=== PATIENT | female | born 1945 | race Caucasian/White ===

== ENCOUNTER 2019-01-19 22:18 | Emergency (ER) | payer MEDICAID ==
[2019-01-19 22:51] VITALS: BP 170/74
[2019-01-19] MEDS ORDERED: Acetaminophen/HYDROcodone 325-5 MG Tab PO ONE (22:55)
--- NOTE | 2019-01-19 22:58 | EDM.PDOC ---
ED HPI GENERAL MEDICAL PROBLEM - General Chief Complaint: Lower Extremity Injury/Pain Stated Complaint: RIGHT LEG PAIN Time Seen by Provider: 01/19/19 22:55 Source of Information: Reports: Patient History Limitations: Reports: No Limitations - History of Present Illness INITIAL COMMENTS - FREE TEXT/NARRATIVE: pt arrived with pain in her lower leg and behind her knee. She states the pain is getting worse and worse. She was seen at the clinic today and she was placed on predisone and flexeril. Onset: Gradual, Other ( last 2 days. ) Duration: Hour(s): Location: Reports: Lower Extremity, Right Associated Symptoms: Reports: No Other Symptoms right LE Pain Score (Numeric/FACES): 8 - Related Data Allergies Allergy/AdvReac Type Severity Reaction Status Date / Time No Known Allergies Allergy Verified 01/19/19 23:04 Home Meds: Home Meds Aspirin [Adult Low Dose Aspirin EC] 81 mg PO DAILY PRN 01/01/16 [History] Acetaminophen 500 mg PO ASDIRECTED PRN 03/24/16 [History] Ibuprofen [Advil] 200 mg PO Q6H PRN 03/24/16 [History] Cyanocobalamin (Vitamin B12) [Vitamin B12] 1 tab PO DAILY 01/19/19 [History] Cyclobenzaprine HCl 1 tab PO TID PRN 01/19/19 [History] predniSONE [Prednisone] 10 mg PO DAILY 01/19/19 [History] Past Medical History HEENT History: Reports: Impaired Vision Other HEENT History: wears glasses Gastrointestinal History: Reports: Cholelithiasis [employer] History: Reports: Musculoskeletal History: Reports: Neck Pain, Chronic Neurological History: Reports: Headaches, Chronic Oncologic (Cancer) History: Reports: None Dermatologic History: Reports: Cellulitis - Infectious Disease History Infectious Disease History: Reports: Chicken Pox, Measles, Mumps - Past Surgical History Oncologic Surgical History: Reports: Lumpectomy, Other (See Below) Social & Family History - Family History Family Medical History: Noncontributory Review of Systems - Review of Systems Review Of Systems: See Below Constitutional: Reports: No Symptoms Eyes: Reports: No Symptoms Ears: Reports: No Symptoms Nose: Reports: No Symptoms Mouth/Throat: Reports: No Symptoms Respiratory: Reports: No Symptoms Cardiovascular: Reports: No Symptoms GI/Abdominal: Reports: No Symptoms Genitourinary: Reports: No Symptoms Musculoskeletal: Reports: Other (pain behind the rt knee. ) Skin: Reports: No Symptoms ED EXAM, GENERAL - Physical Exam Exam: See Below Free Text/Narrative:: pt arrived with pain in the calf of the rt legextending down into the muscles. Pt does feel like there is some tight muscle in the post calf just below the knee. This area is very tender. There is no redness or feeling of warmth. Pt has a nice warm foot and good pulse. This came on without injury. It has been so painful that she can bearly walk. She does have a history of back problems. She has not been having alot of pain in her back recently Exam Limited By: No Limitations General Appearance: Alert, Moderate Distress Ears: Normal TMs Nose: Normal Inspection Throat/Mouth: Normal Inspection Head: Atraumatic Neck: Normal Inspection Respiratory/Chest: No Respiratory Distress Cardiovascular: Regular Rate, Rhythm Extremities: Other (pt is tender in the post calf just below the knee. There is no redness. The muscles do fee tight. she has a neg straight leg raising sign. She had a lumbar spine series which show marked narrowing at l5-s1. She had a Us on the leg which did not reveal any clots. She was ambulated and she did do much better with a walker. ) Neurological: Alert, Oriented, Normal Cognition Course - Vital Signs Last Recorded V/S: Last Vital Signs Temp 36.7 C 01/19/19 23:12 Pulse 73 01/19/19 23:12 Resp 16 01/19/19 23:12 BP 170/74 H 01/19/19 23:12 Pulse Ox 94 L 01/19/19 23:12 - Orders/Labs/Meds Labs: Laboratory Tests 01/19/19 01/20/19 Range/Units 23:00 01:00 WBC 8.1 (4.5-11.0) K/uL RBC 4.45 (3.30-5.50) M/uL Hgb 12.6 (12.0-15.0) g/dL Hct 39.3 (36.0-48.0) % MCV 88 (80-98) fL MCH 28 (27-31) pg MCHC 32 (32-36) % Plt Count 272 (150-400) K/uL Neut % (Auto) 91 H (36-66) % Lymph % (Auto) 7 L (24-44) % Patrick % (Auto) 2 (2-6) % Eos % (Auto) 0 L (2-4) % Baso % (Auto) 0 (0-1) % C-Reactive Protein 0.43 H (0.0-0.3) mg/dL Meds: Medications Discontinued Medications Generic Name Dose Route Start Last Admin Trade Name Freq PRN Reason Stop Dose Admin Hydrocodone Bitart/Acetaminophen 1 tab 01/19/19 22:55 01/19/19 23:03 Ambrose 325-5 Mg PO 01/19/19 22:56 1 tab ONETIME ONE Administration - Re-Assessments/Exams Free Text/Narrative Re-Assessment/Exam: 01/20/19 01:55 lumbar spine shows narrowing at l5-s1. Her us of the rt leg was neg. Departure - Departure Time of Disposition: 01:43 Disposition: Home, Self-Care 01 Condition: Fair Clinical Impression: Pain in posterior right lower extremity - Discharge Information Referrals: Carlin Boswell FUELER [Primary Care Provider] - Forms: ED Department Discharge Care Plan Goals: moist warm heat to area, walk with a walker. continue predisone and muscle relaxant, add norco 5/325 q6h prn for pain, if not better pt should be seen by ortho for evaluation.
--- NOTE | 2019-01-20 00:02 | CRLUS ---
INDICATION: pain in rt lower leg definitely getting worse TECHNIQUE: Ultrasound venous duplex right lower extremity. COMPARISON: None. FINDINGS: The right common femoral, superficial femoral, deep femoral, popliteal, posterior tibial, and greater saphenous veins are fully compressible with normal waveforms. . IMPRESSION: Normal ultrasound of the right lower extremity veins. Dictated by: Vivek Martinez MD @ 01/19/2019 23:59:39 (Electronically Signed)
--- NOTE | 2019-01-20 01:24 | CRLCR ---
INDICATION: Right leg pain TECHNIQUE: Lumbar spine 5 view COMPARISON: None FINDINGS: Bones: No evidence of fracture. No spondylolysis seen. Joints: 5 millimeter anterolisthesis at L4-5. Disc space narrowing at the L4-5 and L5-S1 levels as well as facet hypertrophy. Soft tissues: Atherosclerosis. 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 Dictated by Kodak Banda MD @ Jan 20 2019 1:19AM Signed by Dr. Kodak Banda @ Jan 20 2019 1:22AM
== END 2019-01-20 02:08 | disposition home or self-care (01) ==
LOC: JP.ED 22:18
DX: M79.661 Pain in right lower leg (principal); Z79.899 Other long term (current) drug therapy; Z88.2 Allergy status to sulfonamides
CPT/HCPCS: 36415; 72110; 85025; 86140; 93971; 99284; A9270

== ENCOUNTER 2020-07-04 08:26 | Day surgery (SDC) | payer MEDICAID ==
[~2020-07-04 08:26] MED LIST: Bacitracin Oint 1 GM U/D Packet ONE; Lidocaine 1% with EPINEPHrine 1:100,000 50 ML MDV ONE
[2020-07-04] MEDS ORDERED: Midazolam 1 MG/ML 2 ML SDV ONE (09:16)
[2020-07-04] MEDS ORDERED: fentaNYL 100 MCG/2 ML SDV ONE (09:16)
[2020-07-04] MEDS ORDERED: Propofol 200 MG/20 ML SDV ONE (09:17)
[2020-07-04] MEDS ORDERED: Sodium Chloride 0.9% 1,000 ML IV SCH (09:30)
[2020-07-04] MEDS ORDERED: Bacitracin Oint 1 GM U/D Packet ONE (10:13)
[2020-07-04 12:35] VITALS: BP 165/83; PULSE 65
--- NOTE | 2020-07-05 08:21 | OR ---
DATE OF PROCEDURE: 07/04/2020 SURGEON: Estuardo Prado MD PROCEDURE: Bilateral temporal artery biopsies. COMPLICATIONS: None. VACUUM REPAIRER: None. ANESTHETIC: MAC/local. RISKS: Risks, benefits, alternatives, and limitations including, but not limited to, infection, bleeding, chronic wounds, chronic pain were explained to the patient who wished to proceed. PROCEDURE IN DETAIL: The patient was placed in supine position. The right side was addressed first. This was injected with lidocaine and then a transverse incision was made over the Doppler arterial area. This was then carried down to a pulsating artery. This was then suture ligated using 3-0 Vicryl sutures and sent to pathology, and the skin was closed with 3-0 Vicryl and 4-0 Vicryl in interrupted running fashion. The left side was then performed in the same manner, same fashion, same technique, and in the same sequence using the same equipment. Dermabond was applied to both. The patient tolerated the procedure well. Estuardo Prado MD /[id number]
== END 2020-07-04 12:55 | disposition home or self-care (01) ==
LOC: JP.SDS 08:26
PROVIDERS: ATTEND Surgery
DX: R51.9 Headache, unspecified (principal); I27.20 Pulmonary hypertension, unspecified; E66.9 Obesity, unspecified; F17.210 Nicotine dependence, cigarettes, uncomplicated; Z68.44 Body mass index [BMI] 60.0-69.9, adult
CPT/HCPCS: 88305; 88313; J2250; J2704; J3010; J7030

== ENCOUNTER 2021-07-23 12:43 | Emergency (ER) | payer MEDICAID ==
--- NOTE | 2021-07-23 13:16 | EDM.PDOC ---
ED HPI GENERAL MEDICAL PROBLEM - General Chief Complaint: Lower Extremity Injury/Pain Stated Complaint: PAIN ON L SIDE Time Seen by Provider: 07/23/21 13:05 Source of Information: Reports: Patient History Limitations: Reports: No Limitations - History of Present Illness INITIAL COMMENTS - FREE TEXT/NARRATIVE: 76-year-old female with chronic left-sided pain, claims she has had this problem for years but it is worse the last several weeks, arrives with intense pain in the left chest wall and left upper abdomen. She has had a work-up including CT scan about a year ago, she had an MRI of her low back just a few weeks ago and had a chronic pain consultation on Wednesday in [place] but canceled it because she thought it was regarding her back and this is side pain. No fevers or chills, no new injury, it hurts to breathe but other than the intensity of the pain it is not much different than it has been in the past. She has no bruising or rash over the painful area, no loss of weight or appetite. Onset: Gradual Duration: Chronic Location: Reports: Chest (Left lower lateral chest wall), Abdomen (I left abdomen) Quality: Reports: Sharp, Stabbing Worsens with: Reports: Breathing, Other (Very sore to palpation), Movement Associated Symptoms: Reports: No Other Symptoms Left Chest Pain Score (Numeric/FACES): 10 - Related Data Allergies Allergy/AdvReac Type Severity Reaction Status Date / Time No Known Allergies Allergy Verified 07/23/21 12:59 Home Meds: Home Meds Acetaminophen 500 mg PO ASDIRECTED PRN 03/24/16 [History] Aspirin [Halfprin] 81 mg PO DAILY 07/02/20 [History] Naproxen Sodium [Aleve] 220 mg PO DAILY 04/29/21 [History] Gabapentin [Neurontin] 100 mg PO BID #30 capsule 07/23/21 [Rx] Past Medical History HEENT History: Reports: Impaired Vision Other HEENT History: wears glasses Cardiovascular History: Reports: None Respiratory History: Reports: None Gastrointestinal History: Reports: Cholelithiasis Genitourinary History: Reports: None RADIOLOGY PHYSICIAN History: Reports: Musculoskeletal History: Reports: Neck Pain, Chronic, Other (See Below) Other Musculoskeletal History: right knee pain. Jiménez's cyst R knee Neurological History: Reports: Headaches, Chronic Psychiatric History: Reports: None Endocrine/Metabolic History: Reports: None Hematologic History: Reports: None Immunologic History: Reports: None Oncologic (Cancer) History: Reports: None Dermatologic History: Reports: Cellulitis - Infectious Disease History Infectious Disease History: Reports: Chicken Pox, Measles, Mumps - Past Surgical History Head Surgeries/Procedures: Reports: None HEENT Surgical History: Reports: None GI Surgical History: Reports: Appendectomy, Cholecystectomy, Colonoscopy Female Surgical History: Reports: Tubal Ligation Endocrine Surgical History: Reports: Thyroid Biopsy, Other (See Below) Other Endocrine Surgeries/Procedures: parotoid gland removed from right side Neurological Surgical History: Reports: None Musculoskeletal Surgical History: Reports: None Oncologic Surgical History: Reports: Lumpectomy, Other (See Below) Other Oncologic Surgeries/Procedures: states had benign lump removed from in front of right ear Dermatological Surgical History: Reports: None Social & Family History - Family History Family Medical History: No Pertinent Family History - Tobacco Use Tobacco Use Status *Q: Heavy Tobacco User Years of Tobacco use: 55 Packs/Tins Daily: 0.5 - Caffeine Use Caffeine Use: Reports: Coffee, Soda - Recreational Drug Use Recreational Drug Use: No ED ROS GENERAL - Review of Systems Review Of Systems: See Below Constitutional: Denies: Fever, Chills, Malaise HEENT: Reports: No Symptoms Respiratory: Reports: Pleuritic Chest Pain Cardiovascular: Reports: Chest Pain, Other (She recently underwent a stress test that was fine). Denies: Palpitations GI/Abdominal: Reports: Abdominal Pain : Reports: No Symptoms Musculoskeletal: Reports: Back Pain Skin: Reports: No Symptoms Neurological: Denies: Headache, Paresthesia ED EXAM, GENERAL - Physical Exam Exam: See Below Exam Limited By: No Limitations General Appearance: Alert, No Apparent Distress Head: Atraumatic Neck: Supple, Non-Tender Respiratory/Chest: Lungs Clear, Other (Significant palpation tenderness which actually causes her to become tearful along the left lower chest wall. There is no visual abnormality, no crepitus, no rash) Cardiovascular: Regular Rate, Rhythm. No: Extra Beats GI/Abdominal: Soft, Tender (Some reaction to palpation in the left upper quadrant but not as much as the chest wall tenderness) Extremities: No: Pedal Edema Neurological: Alert, Oriented, No Motor/Sensory Deficits Psychiatric: Anxious Skin Exam: Warm, Dry Course - Vital Signs Last Recorded V/S: Last Vital Signs Temp 97.3 F 07/23/21 13:02 Pulse 71 07/23/21 14:46 Resp 16 07/23/21 14:46 BP 162/73 H 07/23/21 14:46 Pulse Ox 99 07/23/21 14:46 - Orders/Labs/Meds Labs: Laboratory Tests 07/23/21 07/23/21 07/23/21 Range/Units 13:25 13:25 13:25 WBC 9.9 (4.5-11.0) K/uL RBC 4.50 (3.30-5.50) M/uL Hgb 12.6 (12.0-15.0) g/dL Hct 39.7 (36.0-48.0) % MCV 88 (80-98) fL MCH 28 (27-31) pg MCHC 32 (32-36) % Plt Count 298 (150-400) K/uL Neut % (Auto) 71.6 H (36-66) % Lymph % (Auto) 18.3 L (24-44) % Jefferson % (Auto) 7.9 H (2-6) % Eos % (Auto) 1.8 L (2-4) % Baso % (Auto) 0.4 (0-1) % ESR 33 H (0-25) mm/hr Sodium 140 (140-148) mmol/L Potassium 4.3 (3.6-5.2) mmol/L Chloride 106 (100-108) mmol/L Carbon Dioxide 26 (21-32) mmol/L Anion Gap 7.9 (5.0-14.0) mmol/L BUN 11 (7-18) mg/dL Creatinine 0.9 (0.6-1.0) mg/dL Est Cr Clr Drug Dosing 43.37 mL/min Estimated GFR (MDRD) > 60 (>60) Glucose 94 (74-106) mg/dL Calcium 8.8 (8.5-10.1) mg/dL Total Bilirubin 0.3 (0.2-1.0) mg/dL AST 15 (15-37) U/L ALT 16 (12-78) U/L Alkaline Phosphatase 93 (46-116) U/L C-Reactive Protein (0.0-0.3) mg/dL Total Protein 6.8 (6.4-8.2) g/dL Albumin 3.4 (3.4-5.0) g/dL Globulin 3.4 (2.3-3.5) g/dL Albumin/Globulin Ratio 1.0 L (1.2-2.2) 07/23/21 Range/Units 13:25 WBC (4.5-11.0) K/uL RBC (3.30-5.50) M/uL Hgb (12.0-15.0) g/dL Hct (36.0-48.0) % MCV (80-98) fL MCH (27-31) pg MCHC (32-36) % Plt Count (150-400) K/uL Neut % (Auto) (36-66) % Lymph % (Auto) (24-44) % Jefferson % (Auto) (2-6) % Eos % (Auto) (2-4) % Baso % (Auto) (0-1) % ESR (0-25) mm/hr Sodium (140-148) mmol/L Potassium (3.6-5.2) mmol/L Chloride (100-108) mmol/L Carbon Dioxide (21-32) mmol/L Anion Gap (5.0-14.0) mmol/L BUN (7-18) mg/dL Creatinine (0.6-1.0) mg/dL Est Cr Clr Drug Dosing mL/min Estimated GFR (MDRD) (>60) Glucose (74-106) mg/dL Calcium (8.5-10.1) mg/dL Total Bilirubin (0.2-1.0) mg/dL AST (15-37) U/L ALT (12-78) U/L Alkaline Phosphatase (46-116) U/L C-Reactive Protein 0.53 H (0.0-0.3) mg/dL Total Protein (6.4-8.2) g/dL Albumin (3.4-5.0) g/dL Globulin (2.3-3.5) g/dL Albumin/Globulin Ratio (1.2-2.2) Meds: Medications Discontinued Medications Generic Name Dose Route Start Last Admin Trade Name Freq PRN Reason Stop Dose Admin Sodium Chloride 75 mls @ 3 mls/sec 07/23/21 14:45 07/23/21 15:06 Normal Saline IV 07/23/21 14:46 3 mls/sec ASDIRECTED YUNIEL Administration Iopamidol 100 ml 07/23/21 14:37 07/23/21 15:07 Iopamidol 612 Mg/Ml 100 Ml Bottle IV 07/24/21 14:38 100 ml . DIRECTED PRN Administration RADIOLOGY EXAM Ketorolac Tromethamine 30 mg 07/23/21 15:35 07/23/21 15:44 Ketorolac 30 Mg/Ml Sdv IVPUSH 07/23/21 15:36 30 mg ONETIME ONE Administration Sodium Chloride 10 ml 07/23/21 14:37 07/23/21 15:06 Sodium Chloride 0.9% 10 Ml Syringe FLUSH 10 ml ONETIME PRN Administration per radiology protocol - Re-Assessments/Exams Free Text/Narrative Re-Assessment/Exam: 07/23/21 15:59 CBC CMP sed rate and CRP were obtained. Sed rate and CRP were just slightly elevated, the majority of her labs were normal and reassuring. An IV was started, a chest CT with IV contrast was obtained to rule out any rib pathology or inflammatory changes. This was normal as well. Patient will be started on 100 mg of gabapentin twice daily and given a 2-week trial supply and she can follow-up with her primary providers if it is improving. She will have to wait till August 20 for her rescheduled chronic pain appointment that she canceled. Departure - Departure Time of Disposition: 16:03 Disposition: Home, Self-Care 01 Clinical Impression: Chronic chest wall pain - Discharge Information Prescriptions: Gabapentin [Neurontin] 100 mg PO BID #30 capsule Instructions: Chest Wall Pain, [id number] Referrals: Carlin Boswell NP [Primary Care Provider] - Forms: ED Department Discharge, ED Department Discharge Care Plan Goals: Continue your current medications, and try the gabapentin twice daily for 2 w eeks. Please call your primary provider in the next 1 to 2 weeks if it is helpful and you can continue on this medication until you see your pain specialist. Sepsis Event Note (ED) - Evaluation Sepsis Screening Result: No Definite Risk
[2021-07-23] MEDS ORDERED: Iopamidol 612 MG/ML 100 ML Bottle IV PRN (14:37)
[2021-07-23] MEDS ORDERED: Sodium Chloride 0.9% 75 ML IV SCH (14:45)
[2021-07-23 14:46] VITALS: BP 162/73; PULSE 71
[2021-07-23] MEDS: Sodium Chloride 0.9% 10 ML Syringe FLUSH PRN ×2 (14:47→15:06)
[2021-07-23] MEDS ORDERED: Ketorolac 30 MG/ML SDV IVPUSH ONE (15:35)
--- NOTE | 2021-07-23 15:42 | CT ---
Chest w Cont CLINICAL HISTORY: Left chest wall pain TECHNIQUE: Axial scans were obtained from the thoracic inlet to the lung bases following IV infusion of iodinated contrast. Auto dosage reduction and iterative reconstructrion techniques employed. COMPARISON: None. FINDINGS: Lung window images there is a punctate calcification in the right upper lobe. There is some linear scarring in the right lung base. There is a punctate calcification in the left upper lobe. Some minimal nodular pleural thickening measuring partly 6 mm in the left lateral chest.. Mediastinal window images show no mediastinal mass or suspicious lymphadenopathy. There are no pleural effusions.. There are atherosclerotic changes in the aorta. No filling defects are identified in the pulmonary arteries. No chest wall mass thickening or inflammatory changes identified. No osseous lesions are seen in the left chest wall Scans into the upper abdomen show a stable 13 mm enhancing nodule in the spleen similar to 2018. IMPRESSION: No mass, infiltrate or inflammatory change. No suspicious lymphadenopathy Chest wall has a normal contour
== END 2021-07-23 16:15 | disposition home or self-care (01) ==
LOC: JP.ED 12:43
DX: R07.89 Other chest pain (principal); G89.29 Other chronic pain; Z79.82 Long term (current) use of aspirin; Z72.0 Tobacco use
CPT/HCPCS: 36415; 71260; 80053; 85025; 85651; 86140; 96374; 99285; J1885; Q9967

== ENCOUNTER 2022-06-11 06:10 | Day surgery (SDC) | payer MEDICAID ==
[2022-06-11] MEDS ORDERED: Dextrose 5%-Lactated Ringers 1,000 ML IV SCH (07:00)
[2022-06-11] MEDS ORDERED: fentaNYL 100 MCG/2 ML SDV ONE (07:03)
[2022-06-11] MEDS ORDERED: Propofol 200 MG/20 ML SDV ONE (07:03)
[2022-06-11] MEDS ORDERED: Pantoprazole 40 MG Vial IVPUSH ONE (08:21)
[2022-06-11 09:09] VITALS: BP 113/58; PULSE 60
== END 2022-06-11 09:24 | disposition home or self-care (01) ==
LOC: JP.SDS 06:10
PROVIDERS: ATTEND Surgery
DX: K29.50 Unspecified chronic gastritis without bleeding (principal); K29.80 Duodenitis without bleeding; K44.9 Diaphragmatic hernia without obstruction or gangrene; E04.2 Nontoxic multinodular goiter; I10 Essential (primary) hypertension; Z79.899 Other long term (current) drug therapy
CPT/HCPCS: 43239; 87081; C9113; J2704; J3010; J7121; 88305; 88342

== ENCOUNTER 2022-09-30 14:14 | Emergency (ER) | payer MEDICAID ==
[2022-09-30 16:52] VITALS: BP 149/59; PULSE 65
== END 2022-09-30 17:58 | disposition home or self-care (01) ==
LOC: JP.ED 14:14
DX: S06.0X0A Concussion without loss of consciousness, initial encounter (principal); K21.9 Gastro-esophageal reflux disease without esophagitis; F17.210 Nicotine dependence, cigarettes, uncomplicated; Z86.16 Personal history of COVID-19; W18.09XA Striking against other object with subsequent fall, initial encounter
CPT/HCPCS: 70450; 99284

== ENCOUNTER 2023-01-07 08:18 | Day surgery (SDC) | payer MEDICAID ==
[2023-01-07] MEDS ORDERED: Sodium Chloride 0.9% 10 ML Syringe FLUSH ONE (09:00)
[2023-01-07 09:41] VITALS: BP 118/94; PULSE 67
== END 2023-01-07 09:43 | disposition home or self-care (01) ==
LOC: JP.SDS 08:18
PROVIDERS: ATTEND Ophthalmology
DX: H25.012 Cortical age-related cataract, left eye (principal); K21.9 Gastro-esophageal reflux disease without esophagitis

== ENCOUNTER 2023-01-21 08:43 | Day surgery (SDC) | payer MEDICAID ==
[2023-01-21] MEDS ORDERED: Sodium Chloride 0.9% 10 ML Syringe FLUSH PRN (09:30)
[2023-01-21 09:52] VITALS: BP 169/63; PULSE 66
== END 2023-01-21 09:59 | disposition home or self-care (01) ==
LOC: JP.SDS 08:43
PROVIDERS: ATTEND Ophthalmology
DX: H26.9 Unspecified cataract (principal); F41.9 Anxiety disorder, unspecified; F32.A Depression, unspecified; Z79.899 Other long term (current) drug therapy
CPT/HCPCS: 66984; J3490

== ENCOUNTER 2023-07-09 11:51 | Emergency (ER) | payer MEDICAID ==
[2023-07-09 13:09] VITALS: BP 198/77; PULSE 72
== END 2023-07-09 14:34 | disposition home or self-care (01) ==
LOC: JP.ED 11:51
DX: S00.03XA Contusion of scalp, initial encounter (principal); S20.212A Contusion of left front wall of thorax, initial encounter; M47.812 Spondylosis without myelopathy or radiculopathy, cervical region; W18.30XA Fall on same level, unspecified, initial encounter; Y92.009 Unspecified place in unspecified non-institutional (private) residence as the place of occurrence of the external cause
CPT/HCPCS: 70450; 70450-26; 71250; 71250-26; 72125; 72125-26; 73030-26-RT; 73030-RT; 76377; 99284

== ENCOUNTER 2023-09-24 09:24 | Emergency (ER) | payer MEDICAID ==
[2023-09-24 09:41] VITALS: BP 177/75; PULSE 72
[2023-09-24 10:40] LABS: BASOPHILS PERCENT AUTO 0.1 % (0.1-1.3); EOSINOPHILS ABSOLUTE AUTO 0.12 K/uL (0.00-0.40); EOSINOPHILS PERCENT AUTO 1.6 % (0.0-5.4); HEMATOCRIT 39.3 % (34.3-46.0); HEMOGLOBIN 12.8 g/dL (11.2-15.5); IMMATURE GRAN ABSOLUTE AUTO 0.03 K/uL (0.00-0.23); IMMATURE GRAN PERCENT AUTO 0.4 % (0.0-0.7); LYMPHOCYTES ABSOLUTE AUTO 1.84 K/uL (0.8-3.3); LYMPHOCYTES PERCENT AUTO 24.2 % (11.4-47.7); MEAN CORPUSCULAR HEMOGLOBIN 29.6 pg (31.6-35.5); MEAN CORPUSCULAR HGB CONC 32.6 g/dL (31.6-35.5); MEAN CORPUSCULAR VOLUME 90.8 fL (81.4-99.0); MONOCYTES ABSOLUTE AUTO 0.58 K/uL (0.20-0.90); MONOCYTES PERCENT AUTO 7.6 % (3.3-12.6); NEUTROPHILS ABSOLUTE AUTO 5.02 K/uL (1.0-7.6); NEUTROPHILS PERCENT AUTO 66.1 % (40.0-78.1); PLATELET COUNT,PLT 228 K/uL (130-375); RED BLOOD CELL COUNT 4.33 M/uL (3.77-5.24); WHITE BLOOD CELL COUNT,WBC 7.6 K/uL (3.2-11.0)
[2023-09-24 10:42] LABS: BASOPHILS ABSOLUTE AUTO 0.01 K/uL (0.00-0.10)
[2023-09-24 11:02] LABS: A/G RATIO 0.9 (1.2-2.2); ALANINE AMINOTRANSFERASE,ALT 17 U/L (12-78); ALBUMIN 2.9 g/dL (3.4-5.0); ALKALINE PHOSPHATASE 82 U/L (46-116); ANION GAP 7.1 mmol/L (5.0-14.0); ASPARTATE AMNIOTRANSFERASE,AST 12 U/L (15-37); BILIRUBIN TOTAL 0.5 mg/dL (0.2-1.0); BLOOD UREA NITROGEN,BUN 14 mg/dL (7-18); CALCIUM 8.2 mg/dL (8.5-10.1); CARBON DIOXIDE,CO2 27 mmol/L (21-32); CHLORIDE,CL 106 mmol/L (100-108); EST CRCL DRUG DOSING (CG) 37.85 mL/min; ESTIMATED GFR 58 mL/min (>60); GLUCOSE RANDOM 83 mg/dL (74-106); POTASSIUM,K 4.1 mmol/L (3.6-5.2); SODIUM,NA 140 mmol/L (140-148)
== END 2023-09-24 11:17 | disposition home or self-care (01) ==
LOC: JP.ED 09:24
DX: H81.12 Benign paroxysmal vertigo, left ear (principal); R03.0 Elevated blood-pressure reading, without diagnosis of hypertension; F17.210 Nicotine dependence, cigarettes, uncomplicated; Z86.16 Personal history of COVID-19
CPT/HCPCS: 36415; 80053; 85025; 93005; 99284

== ENCOUNTER 2024-02-16 06:25 | Day surgery (SDC) | payer MEDICAID ==
[2024-02-16] MEDS: Sodium Chloride 0.9% 1,000 ML IV SCH (07:07)
[2024-02-16] MEDS ORDERED: Propofol 200 MG/20 ML SDV ONE (07:17)
[2024-02-16] MEDS ORDERED: fentaNYL 50 MCG/ML SDV ONE (07:17)
[2024-02-16 09:59] VITALS: BP 155/76; PULSE 70
== END 2024-02-16 10:13 | disposition home or self-care (01) ==
LOC: JP.SDS 06:25
PROVIDERS: ATTEND Surgery
DX: K29.80 Duodenitis without bleeding (principal); K44.9 Diaphragmatic hernia without obstruction or gangrene; K22.89 Other specified disease of esophagus; R13.10 Dysphagia, unspecified; J44.9 Chronic obstructive pulmonary disease, unspecified; F17.200 Nicotine dependence, unspecified, uncomplicated
CPT/HCPCS: 43239; J2704; J3010; J7030

== ENCOUNTER 2025-03-30 13:22 | Emergency (ER) | payer SELFPAY ==
[2025-03-30 13:33] VITALS: PULSE 68
[2025-03-30 16:58] VITALS: BP 141/106
== END 2025-03-30 16:59 | disposition home or self-care (01) ==
LOC: JP.ED 13:22
DX: M54.40 Lumbago with sciatica, unspecified side (principal); G89.29 Other chronic pain; R42 Dizziness and giddiness; I10 Essential (primary) hypertension; K21.9 Gastro-esophageal reflux disease without esophagitis; F17.210 Nicotine dependence, cigarettes, uncomplicated; Z79.82 Long term (current) use of aspirin; Z79.899 Other long term (current) drug therapy
CPT/HCPCS: 99283; A9270

== ENCOUNTER 2025-05-22 16:29 | Emergency (ER) | payer OTHER ==
[2025-05-22 19:46] LABS: BASOPHILS ABSOLUTE AUTO 0.04 K/uL (0.00-0.10); BASOPHILS PERCENT AUTO 0.4 % (0.1-1.3); EOSINOPHILS ABSOLUTE AUTO 0.13 K/uL (0.00-0.40); EOSINOPHILS PERCENT AUTO 1.5 % (0.0-5.4); IMMATURE GRAN ABSOLUTE AUTO 0.02 K/uL (0.00-0.23); IMMATURE GRAN PERCENT AUTO 0.2 % (0.0-0.7); LYMPHOCYTES ABSOLUTE AUTO 1.59 K/uL (0.8-3.3); LYMPHOCYTES PERCENT AUTO 17.8 % (11.4-47.7); MONOCYTES ABSOLUTE AUTO 0.53 K/uL (0.20-0.90); MONOCYTES PERCENT AUTO 5.9 % (3.3-12.6); NEUTROPHILS ABSOLUTE AUTO 6.62 K/uL (1.0-7.6); NEUTROPHILS PERCENT AUTO 74.2 % (40.0-78.1); PLATELET COUNT,PLT 265 K/uL (130-375); RED BLOOD CELL COUNT 4.18 M/uL (3.77-5.24); WHITE BLOOD CELL COUNT,WBC 8.9 K/uL (3.2-11.0)
[2025-05-22 20:00] LABS: BLOOD UREA NITROGEN,BUN 13.0 mg/dL (7-18); CARBON DIOXIDE,CO2 25.0 mmol/L (21-32); CHLORIDE,CL 107.0 mmol/L (100-108); CREATININE 1.0 mg/dL (0.6-1.0); EST CRCL DRUG DOSING (CG) 36.67 mL/min; ESTIMATED GFR 58.0 mL/min (>60); GLUCOSE RANDOM 101.0 mg/dL (74-106); POTASSIUM,K 3.9 mmol/L (3.6-5.2); SODIUM,NA 141.0 mmol/L (140-148)
[2025-05-22] MEDS: hydrALAZINE 20 MG/ML SDV IVPUSH ONE (20:19)
[2025-05-22 21:21] VITALS: BP 140/51; PULSE 90
[2025-05-22] MEDS ORDERED: Naloxone 0.4 MG/ML SDV IVPUSH PRN (22:43)
[2025-05-22] MEDS: fentaNYL 50 MCG/ML SDV IVPUSH ONE (22:53)
== END 2025-05-23 00:39 | disposition home or self-care (01) ==
LOC: JP.ED 16:29
DX: S06.0X0A Concussion without loss of consciousness, initial encounter (principal); I10 Essential (primary) hypertension; M19.90 Unspecified osteoarthritis, unspecified site; F17.200 Nicotine dependence, unspecified, uncomplicated; Z90.49 Acquired absence of other specified parts of digestive tract; Z79.82 Long term (current) use of aspirin; Z79.899 Other long term (current) drug therapy; W01.0XXA Fall on same level from slipping, tripping and stumbling without subsequent striking against object, initial encounter; Y99.0 Civilian activity done for income or pay
CPT/HCPCS: 36415; 70450; 72125; 73060; 76377; 80048; 83735; 84484; 85025; 93005; 96374; 96375; 99284; A9270; J0360; J3010; 93010